=== PATIENT | female | born 1950 | race Caucasian/White ===

== ENCOUNTER 2016-12-13 14:15 | Emergency (ER) | payer OTHER ==
[~2016-12-13] VITALS: Ht 167.6 cm; Wt 56.7 kg
--- NOTE | ~2016-12-13 | EKG ---
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
[2016-12-13] MEDS ORDERED: PRINIVIL20 MG PO (14:29)
[2016-12-13] MEDS ORDERED: TOPROL XL50 MG PO (14:30)
[2016-12-13] MEDS ORDERED: SINGULAIR 10 MG10 M1 PO (14:30)
[2016-12-13] MEDS ORDERED: LEXAPRO20 MG PO (14:31)
[2016-12-13] MEDS ORDERED: VITAMIN B-625 MG PO (14:33)
[2016-12-13] MEDS ORDERED: IRON325 PO (14:34)
[2016-12-13] MEDS ORDERED: VITAMIN D1000 UNI1 PO (14:34)
[2016-12-13 15:01] LABS: ABSOLUTE NEUTROPHILS 8.2 thou/uL (1.4-8.2); BASOPHILS 0.3 % (0.0-2.0); EOSINOPHILS 1.7 % (0.0-3.0); HEMATOCRIT 39.1 % (37.0-47.0); HEMOGLOBIN 12.9 gm/dL (12.0-15.0); LYMPHOCYTES 10.9 % (24.0-44.0); MANUAL DIFF NO; MCH 27.9 pg (26.0-34.0); MCHC 32.9 % (28.0-37.0); MCV 84.8 fL (80.0-100.0); MONOCYTES 7.9 % (1.0-8.0); PLATELET COUNT 307 thou/uL (150-400); POLYS 79.2 % (36.0-66.0); RBC 4.61 mil/uL (4.20-5.00); RDW 14.3 % (10.5-14.5); WBC 10.4 thou/uL (4.0-11.0)
[2016-12-13 15:09] LABS: CALCIUM 8.3 mg/dL (8.5-10.1); CREATININE 1.1 mg/dL (0.6-1.3); POTASSIUM 3.9 mmol/L (3.5-5.1)
[2016-12-13 15:59] VITALS: BP 115/61
== END 2016-12-13 15:59 | disposition home or self-care (01) ==
LOC: ER 14:15
PROVIDERS: Emergency Medicine
DX: S82.832A Other fracture of upper and lower end of left fibula, initial encounter for closed fracture (principal); X58.XXXA Exposure to other specified factors, initial encounter; Y93.89 Activity, other specified; Y92.89 Other specified places as the place of occurrence of the external cause; Y99.9 Unspecified external cause status; J45.909 Unspecified asthma, uncomplicated; I10 Essential (primary) hypertension